=== PATIENT | female | born 1990 | race Two or more races ===

== ENCOUNTER 2020-08-21 11:25 | Emergency (ER) | payer MEDICAID, OTHER ==
[~2020-08-21] VITALS: Ht 149.9 cm; Wt 61.2 kg
[2020-08-21 11:56] LABS: Urine Bacteria NONE SEEN /hpf (None Seen); Urine Blood Negative /uL (Negative); Urine Specific Gravity 1.002 (1.001-1.035); Urine WBC <1 /hpf (0 - 5)
[2020-08-21 12:20] VITALS: BP 143/67
[2020-08-21] MEDS ORDERED: KETOROLAC TROMETH 60MG/2ML VIAL IM ONE (14:00)
== END 2020-08-21 14:19 | disposition home or self-care (01) ==
LOC: ER 11:25
DX: N83.202 Unspecified ovarian cyst, left side (principal)
CPT/HCPCS: 76830; 76856; 81001; 81025; 96372; 99284; J1885